=== PATIENT | female | born 1940 | race Caucasian/White ===

== ENCOUNTER → 2018-02-11 | Day surgery (SDC) | payer OTHER ==
[~2018-02-11] VITALS: Ht 157.5 cm; Wt 86.2 kg
--- NOTE | 2018-02-11 15:24 | Operative Report ---
Operative/Inv Procedure Report Surgery Date: 02/11/18 Name of Procedure: Left ureteral stone extraction, left stent placement Pre-Operative Diagnosis: Left ureteral calculus/UTI Post-Operative Diagnosis: Same Estimated Blood Loss: scant Surgeon/[employer] Solution Architect: Rod ABDULLAHI,Marcin Vaughan Anesthesia: local monitored anesthesi Operative/Procedure Note Note: Patient had a history of bilateral renal stones, with a left ureteral calculus. The left ureteral calculus failed to progress, and she chose to undergo ureteroscopy etc. She was diagnosed recently with urinary tract infection, and started on Augmentin. We discussed alternatives and the possibility of undergoing stent placement as opposed to stone extraction. She is aware of the options, and was agreeable to have me perform her procedure today. She was made where the combination/indications thereof including but not exclusive of , heart attack, stroke, hemorrhage requiring transfusion, potential damage to the kidney/ureter, bladder, urethra. She is aware of the potential need for further procedures to resolve her ureteral stone, as well as multiple procedures for her upper tract stones. She was agreeable undergo the procedure which is as follows After uneventful administration of anesthesia. With close anesthetic monitoring patient was placed in lithotomy position and prepped and draped in sterile fashion. At this point a 22 Yoruba scope was passed per urethra and into the bladder. Thorough inspection of bladder did not reveal any mucosal lesions. The left orifice identified, and she was noted to have a stone protruding from the orifice. Through various attempts at manipulation, I was able to grasp the stone and remove it in its entirety. It was sent for analysis. Upon completion of this a open-ended catheter was passed up into the left kidney through this pass a Glidewire over this was passed a double-J stent which is positioned fluoroscopically as well as endoscopically. Upon completion of procedure the patient was awakened and returned to recovery room in good condition.
--- NOTE | 2018-02-13 07:35 | RADIOLOGY REPORT ---
EXAMINATION: Intraoperative fluoroscopy CLINICAL INFORMATION: Cystoscopy with stent COMPARISON: None. TECHNIQUE: Intraoperative fluoroscopy was provided for use by Dr. Velasco. A total of 3 images were saved to PACS. A radiologist was not present during today's procedure. TOTAL FLUOROSCOPIC TIME: 11 seconds FINDINGS\E\IMPRESSION: Intraoperative fluoroscopy provided for use by Dr. Velasco. Please see operative note for detailed findings.
== END ==
LOC: STS 01:00
DX: N20.1 Calculus of ureter (principal); N39.0 Urinary tract infection, site not specified; I48.91 Unspecified atrial fibrillation; Z79.01 Long term (current) use of anticoagulants; I10 Essential (primary) hypertension
CPT/HCPCS: 74018; C2617; J1100; J1580; J2250; J2405